=== PATIENT | female | born 1980 | race Caucasian/White ===

== ENCOUNTER 2025-03-20 01:39 | Inpatient (IN) | payer BC ==
[~2025-03-20] VITALS: Ht 172.7 cm; Wt 81.0 kg
--- NOTE | 2025-03-20 01:59 | NUR ---
PT PLACED IN ED 10 AT THIS TIME
--- NOTE | 2025-03-20 02:12 | ERN ---
ED Note History of Present Illness Stated Complaint: C/O ABD PAIN, HEADACHE, NAUSEA Chief Complaint: Abdominal Pain Time Seen by MD: :41 Time Seen by Midlevel: 01:41 Dictation: The patient is a 45-year-old female with a history of migraines, liver tr ansplant, ankylosis spondylitis who presents to the emergency department with complaints of epigastric abdominal pain associated with nausea nonbloody vomiting, frontal headache onset 3:00 p.m.. Patient reports that she isn't a process of moving and was packing when a metal box that weighs about 50 lb fell on her stomach. Patient denies any head trauma, denies any fevers, denies any constipation diarrhea. Patient does reports she usually gets headaches. Patient also reports that her urine was very dark. Allergies: Coded Allergies: acetaminophen (Unverified Allergy, Unknown, 03/20/25) hydrocodone (Unverified Allergy, Unknown, 03/20/25) sumatriptan (Unverified Allergy, Unknown, 03/20/25) Past Medical History Past Medical History: Other Additional Past Medical Hx: LIVER TRANSPLANT; Surgical History: Other Surgical History Other: LIVER TRANSPLANT (2021) RN Note Reviewed/Agreed w/PFSH: Yes Review of System Dictation Constitutional: Negative for fever,chills, and weight loss Eyes: Negative for injury, pain,redness, and discharge ENT: Negative for injury,pain or swelling Cardiovascular: Negative for chest pain, palpitations, and edema Respiratory: Negative for shortness of breath, cough, and wheezing, Abdomen/GI: Negative for diarrhea, and constipation positive for epigastric, nausea, vomiting Back: Negative for injury and pain : Negative for injury, bleeding and discharge MS/Extremity: Negative for injury and deformity Skin: Negative for rash, and discoloration Neuro: Negative for headache, weakness, numbness, tingling, and seizure Psych: Negative for suicide ideation, homicidal ideation, and hallucinations Initial Vital Sign VS Vital Signs Date Time Temp Pulse Resp B/P (MAP) Pulse Ox O2 Delivery O2 Flow Rate FiO2 03/20/25 01:41 99.0 125 20 134/88 98 Room Air 03/20/25 02:08 0 21 Physical Exam Dictation Vital Signs reviewed General Appearance: Alert, oriented x 3, no acute distress, well developed, nourished. Head and Face: non-traumatic. Eyes: PERRL, pink conjunctivas, eyelid no trauma, anterior chamber with arcus senilis. Ears: Pinnas intact and no signs of trauma or erythema ear canals clear and no discharge TM no erythema Nose: No discharge, no bleeding. Oropharynx: Mouth normal, tongue pink. pharynx clear,no erythema, tonsils no exudates, no abscesses noted, mucous membrane moist Neck: Supple, non-tender, no thyromegaly, no masses, no JVD, no bruits Breast:Deferred Chest:No tenderness, no crepitus, no paradoxical movement, no retractions Lungs:Clear, well-ventilated, symmetric, no rales, no wheezing, no rhonchi, no stridor, good breath sounds bilaterally Heart: Regular rate, regular rhythm, no murmur, no gallops Vascular: no peripheral edema, Abdomen: Soft, positive bowel sounds, nondistended, no guarding, Epigastric and left upper quadrant tenderness, no rebound, no masses no hepatomegaly, no splenomegaly, no Shah's sign, no hernias. Rectal: Deferred Genital: Deferred Neurological: Normal speech, motor function intact, sensory function intact , Musculoskeletal: Neck nontender, full range of motion, back nontender, full range of motion, Extremities: nontender, full range of motion Skin: Color pink, dry, no turgor, no rash, no lacerations, no abrasions, no contusions. Lymphatic: Deferred Results (Laboratory/Radiology) Laboratory/Radiology Laboratory Tests Test 03/20/25 02:07 03/20/25 05:16 White Blood Count 9.7 K/uL (4.8-10.8) Red Blood Count 4.63 MIL/uL (4.00-5.50) Hemoglobin 13.6 g/dL (12.0-16.0) Hematocrit 40.6 % (36-48) Mean Corpuscular Volume 87.7 fL (79-99) Mean Corpuscular Hemoglobin 29.4 pg (27.0-33.0) Mean Corpuscular Hemoglobin Concent 33.5 g/dL (32.0-36.0) Red Cell Distribution Width 13.1 % (11.0-15.5) Platelet Count 240 K/uL (130-400) Mean Platelet Volume 10.1 fL (7.5-10.5) Immature Granulocyte % (Auto) 0.3 % (0-1) Neutrophils (%) (Auto) 81.7 % (40.0-77.0) H Lymphocytes (%) (Auto) 10.9 % (21.0-51.0) L Monocytes (%) (Auto) 6.9 % (3.0-13.0) Eosinophils (%) (Auto) 0.0 % (0.0-8.0) Basophils (%) (Auto) 0.2 % (0.0-5.0) Neutrophils # (Auto) 7.9 K/uL (1.8-7.7) H Lymphocytes # (Auto) 1.1 K/uL (1.0-4.8) Monocytes # (Auto) 0.7 K/uL (0.1-1.0) Eosinophils # (Auto) 0.00 K/uL (0.00-0.70) Basophils # (Auto) 0.02 K/uL (0.00-0.20) Absolute Immature Granulocyte (auto 0.03 K/uL (0-1) Nucleated Red Blood Cells 0.0 % (0.0-0.19) Sodium Level 138 mmol/L (136-145) Potassium Level 4.0 mmol/L (3.5-5.1) Chloride Level 101 mmol/L (101-111) Carbon Dioxide Level 28 mmol/L (21-32) Blood Urea Nitrogen 29 mg/dL (7-18) H Creatinine 2.1 mg/dL (0.5-1.0) H Glomerular Filtration Rate Calc 29 mL/min (>90) Random Glucose 135 mg/dL (70-105) H Total Calcium 9.8 mg/dL (8.5-10.1) Total Bilirubin 0.8 mg/dL (0.2-1.0) Direct Bilirubin 0.3 mg/dL (0.0-0.3) Aspartate Amino Transf (AST/SGOT) 15 U/L (10-37) Alanine Aminotransferase (ALT/SGPT) 23 U/L (12-78) Alkaline Phosphatase 101 U/L (50-136) Total Creatine Kinase 54 U/L (21-232) Troponin I High Sensitivity 23 ng/L (4-50) Total Protein 7.1 g/dL (6.0-8.3) Albumin 4.1 g/dL (3.5-5.0) Lipase 40 U/L (16-77) Serum Test, Qualitative NEGATIVE (NEGATIVE) Urine Color LIGHT-YELLOW (YELLOW) Urine Appearance CLEAR (CLEAR) Urine pH 5.0 (5.0-8.0) Urine Specific [place] 1.007 (1.001-1.031) Urine Protein NEGATIVE mg/dL (NEGATIVE) Urine Glucose (UA) NEGATIVE mg/dL (NEGATIVE) Urine Ketones NEGATIVE mg/dL (NEGATIVE) Urine Occult Blood NEGATIVE (NEGATIVE) Urine Nitrate NEGATIVE (NEGATIVE) Urine Bilirubin NEGATIVE mg/dL (NEGATIVE) Urine Urobilinogen 0.2 mg/dL (0.2-1.0) Urine Leukocyte Esterase NEGATIVE Jeane/uL Labs Reviewed?: Yes EKG: (+) rhythm (Sinus tachycardia) EKG Comment: Date:03/20/2025 Time:0210 Ventricular rate:113 FL interval:143 QRS duration:94 QT/QTc:324 EKG interpretation: Sinus tachycardia Reviewed by ED Attending no STEMI CT Scan Comment: REASON: ABD PAIN epigastric ORDERING PHYSICIAN: NIRAV THAKKAR HALL CLEANER PROCEDURE: ABD PEL WO - CT ABDOMEN/PELVIS W/O CONTRAST EXAM: CT Abdomen and Pelvis without IV contrast CLINICAL HISTORY: Abdominal pain. Epigastric pain. TECHNIQUE: Thin collimated axial CT images of the abdomen and pelvis were obtained with sagittal and coronal reformatted images also submitted. CT scan is done according to ALARA (As Low As Reasonably Achievable). CONTRAST: None. COMPARISON: None. FINDINGS: The included lungs are clear. Surgical clips around the hepatic hilum without focal hepatic lesion. Status postcholecystectomy. No focal abnormality within the pancreas, spleen, or adrenals. Nonobstructive renal calculi bilaterally, the largest measuring up to 4 mm. No ureteral calculus or hydronephrosis bilaterally. Unremarkable urinary bladder. Status post hysterectomy. The right ovary is not visualized. Unremarkable left ovary. Mildly dilated proximal small bowel loops with mild mesenteric edema, measuring up to 2.8 cm in diameter, no obvious zone of transition is evident. Unremarkable appendix. Grossly unremarkable abdominal vessels. No pathological lymphadenopathy in the abdomen or pelvis. No ascites or pneumoperitoneum. No acute bony abnormality is evident. Degenerative osseous changes. IMPRESSIONS: Mildly dilated proximal small bowel loops with mild mesenteric edema, measuring up to 2.8 cm in diameter, no obvious zone of transition is evident. The differentials could be mild acute enteritis or ileus. The possibility of early changes of bowel obstruction cannot be excluded. If there is a clinical concern of bowel obstruction, recommend a barium follow-through study for an optimal evaluation. Nonobstructive renal calculi bilaterally. Status postcholecystectomy. Surgical clips around the hepatic hilum and IVC. /[place] DICTATED BY: NICKIE HAGER Jr., MD DATE: 03/20/25621 ELECTRONICALLY SIGNED BY: NICKIE HAGER Jr., MD DATE: 03/20/25621 ED Course ED Course Orders Procedure Category Date Status Time Cbc With Differential LAB 03/20/25 Complete 01:59 Urinalysis Profile LAB 03/20/25 Complete 01:59 12 Lead Ekg Tracing- EKG 03/20/25 Complete Technical 01:59 0.9%Nacl 1000ml (Ns PHA 03/20/25 Complete 1000ml) 02:00 Ondansetron 4mg Inj PHA 03/20/25 Complete (Zofran 4mg Inj) 02:00 Creatine Kinase, Total LAB 03/20/25 Complete 01:59 Lipase LAB 03/20/25 Complete 01:59 Basic Metabolic Panel LAB 03/20/25 Complete 01:59 Hepatic Function Panel LAB 03/20/25 Complete 01:59 Morphine 4mg Syg PHA 03/20/25 Complete (Morphine 4mg Syg) 02:00 Chest 1vw RAD 03/20/25 Resulted 02:07 Testing, LAB 03/20/25 Complete Serum Hcg 02:13 Troponin I High LAB 03/20/25 Complete Sensitivity 02:40 Ct Abdomen/Pelvis W/O CT 03/20/25 Resulted Contrast 02:40 Hydromorphone 1 Mg PHA 03/20/25 Complete Inj (Dilaudid 1mg Inj 06:00 Edm Admit Bridge Order ADM 03/20/25 Transmitted 06:32 Initiate CHRISTIAN 03/20/25 In Process Hyperglycemia Protoco 06:30 Insulin Regular, PHA 03/20/25 Logged Human 3ml (Humulin R 07:30 Initiate Hypoglycemia CHRISTIAN 03/20/25 In Process Protocol 06:30 Dextrose 50%-Water PHA 03/20/25 Logged (D50w) 06:30 Glucagon 1mg Kit PHA 03/20/25 Logged (Glucagon 1mg Kit) 06:30 Initiate Hypokalemia CPOE 03/20/25 Transmitted Po Half 06:30 Potassium Chloride PHA 03/20/25 Logged 10meq/100ml ([place] 06:30 Potassium Chl 10% PHA 03/20/25 Logged Elixir 20meq (Kcl 10% 06:30 Potassium Chloride PHA 03/20/25 Logged 20meq Er (K-Dur/Klor- 06:30 Notify Physician If CPOE 03/20/25 Transmitted There Is 06:30 Notify Md On The Next CPOE 03/20/25 Transmitted 06:30 Notify Md On The CPOE 03/20/25 Transmitted Next(Cont.) 06:30 Magnesium 2gm Premix PHA 03/20/25 Logged 50ml (Magnesium 2gm 06:30 Ammonia LAB 03/21/25 Verified 04:00 B-Type Natriuretic LAB 03/21/25 Verified Peptide 04:00 Cbc With Differential LAB 03/21/25 Verified 04:00 Comprehensive LAB 03/21/25 Verified Metabolic Panel 04:00 Creatine Kinase, Total LAB 03/21/25 Verified 04:00 Hemoglobin A1c LAB 03/21/25 Verified 04:00 Hepatic Function Panel LAB 03/21/25 Verified 04:00 Influenza Type A & B, LAB 03/20/25 Logged Rapid 06:30 Lactic Acid LAB 03/21/25 Verified 04:00 Lipase LAB 03/21/25 Verified 04:00 Magnesium LAB 03/21/25 Verified 02:00 Procalcitonin LAB 03/21/25 Verified 04:00 Vital Signs(Adult CPOE 03/20/25 Transmitted Hospitalist) 06:30 Daily Weights CPOE 03/20/25 Transmitted 06:30 I&O Q Shift CPOE 03/20/25 Transmitted 06:30 Fever: Blood Cx X 2 CPOE 03/20/25 Transmitted 06:30 Diphenhydramine Hcl PHA 03/20/25 Logged (Benadryl Inj) 06:30 Acetaminophen 325 Tab PHA 03/20/25 Logged (Tylenol 325mg Tab 06:30 Acetaminophen 325 Tab PHA 03/20/25 Logged (Tylenol 325mg Tab 06:30 Ondansetron 4mg Inj PHA 03/20/25 Logged (Zofran 4mg Inj) 06:30 Zolpidem Tartrate 5 PHA 03/20/25 Logged Mg Tab (Ambien) 06:30 Mag/Alum/Simeth 30ml PHA 03/20/25 Logged (Maalox Plus 30ml) 06:30 Lactulose 20 Gm/30 Ml PHA 03/20/25 Logged Udcup (Constulose 06:30 Nitroglycerin 0.4mg PHA 03/20/25 Logged Sl Tab (Nitrostat) 06:30 Guaifenesin-Dm PHA 03/20/25 Logged 200/20mg 10ml 06:30 Famotidine 20mg Vial PHA 03/20/25 Logged (Pepcid 20mg Vial) 06:30 Nurse To Enter Home CPOE 03/20/25 Transmitted Medication 06:30 Admit Orders ADM 03/20/25 Transmitted 06:30 Telemetry Monitoring CPOE 03/20/25 Transmitted 06:30 Activity: Br W/Brp CPOE 03/20/25 Transmitted With Assist 06:30 Nothing By Mouth DIET 03/20/25 Transmitted Breakfast Heparin 5,000 Unit PHA 03/20/25 Logged Vial (Heparin 5,000 U 09:00 Apply Scds CPOE 03/20/25 Transmitted 06:30 Acetaminophen 325 Tab PHA 03/20/25 Logged (Tylenol 325mg Tab 06:30 Ketorolac PHA 03/20/25 Logged Tromethamine 15mg/Ml 06:30 Tramadol PHA 03/20/25 Logged Hcl/Acetaminophen 06:30 Hydromorphone 0.5mg PHA 03/20/25 Logged Syg (Dilaudid 0.5mg 06:30 Culture Urine JAMIE 03/20/25 Logged 06:30 Ct Abdomen/Pelvis W/O CT 03/21/25 Verified Contrast 06:30 Case Management CM 03/20/25 Transmitted Evaluation 06:30 Pt Eval Request PT 03/20/25 Transmitted 06:30 0.9%Nacl 1000ml (Ns PHA 03/20/25 Logged 1000ml) 06:30 Ceftriaxone 1g Vial PHA 03/20/25 Logged (Rocephine 1g Inj) 06:30 Hydralazine 20mg Inj PHA 03/20/25 Logged (Apresoline 20mg In 06:30 Famotidine 20mg Vial PHA 03/20/25 Logged (Pepcid 20mg Vial) 09:00 General Surgery CONPHYSVC 03/20/25 Transmitted Consult 06:30 Current Medications Medications (Trade) Dose Ordered Sig/Dariana Route PRN Reason Start Time Stop Time Status Last Admin Dose Admin Acetaminophen (TYLenol 325MG TAB) 650 mg Q4H PRN PO MILD PAIN (1-3) 03/20/25 06:30 04/19/25 06:29 UNV Acetaminophen (TYLenol 325MG TAB) 650 mg Q6H PRN PO MILD PAIN (1-3) 03/20/25 06:30 04/19/25 06:29 UNV Acetaminophen (TYLenol 325MG TAB) 650 mg Q6H PRN PO TEMPERATURE GREATER THAN 101.5 03/20/25 06:30 04/19/25 06:29 UNV Al Hydroxide/Mg Hydroxide (MAALox PLUS 30ML) 30 ml Q6H PRN PO INDIGESTION 03/20/25 06:30 04/19/25 06:29 UNV Ceftriaxone Sodium 2 gm/ Sodium Chloride 100 ml @ 200 mls/hr Q24H IV 03/20/25 06:30 03/30/25 06:29 UNV Dextrose (D50w) 50 ml AD PRN IV HYPOGLYCEMIA PROTOCOL 03/20/25 06:30 04/19/25 06:29 UNV Diphenhydramine HCl (BENAdryl INJ) 25 mg Q6H PRN IV SEVERE ITCHING/RASH 03/20/25 06:30 04/19/25 06:29 UNV Famotidine (Pepcid 20mg Vial) 20 mg BID IV 03/20/25 09:00 04/19/25 08:59 UNV Famotidine (Pepcid 20mg Vial) 20 mg BID PRN IV NAUSEA/VOMITING 03/20/25 06:30 04/19/25 06:29 UNV Glucagon (Glucagon 1mg Kit) 1 mg AD PRN IM HYPOGLYCEMIA PROTOCOL 03/20/25 06:30 04/19/25 06:29 UNV Guaifenesin/ Dextromethorphan (RobiTUSSin DM 200/20MG 10ML) 10 ml Q4H PRN PO COUGH 03/20/25 06:30 04/19/25 06:29 UNV Heparin Sodium (Porcine) (HEParin 5,000 UNIT VIAL) 5,000 unit BID SQ 03/20/25 09:00 04/19/25 08:59 UNV Hydralazine HCl (APRESOLine 20MG INJ) 10 mg Q6H PRN IV For:SBP above 160;DBP above 90 03/20/25 06:30 04/19/25 06:29 UNV Hydromorphone HCl (DiLAUDid 0.5MG INJ) 0.5 mg Q4H PRN IVP SEVERE PAIN (7-10) 03/20/25 06:30 03/25/25 06:29 UNV Hydromorphone HCl (DiLAUDid 1MG INJ) 1 mg ONCE ONCE IVP 03/20/25 06:00 03/20/25 06:01 DC 03/20/25 06:14 Insulin Human Regular (humuLIN R 100 UNIT/ML 3ML) INSULIN SLIDING SCAL... ACHS SQ 03/20/25 07:30 04/19/25 07:29 UNV Ketorolac Tromethamine (toRADol) 15 mg Q8H PRN IV MODERATE PAIN (4-6) 03/20/25 06:30 03/25/25 06:29 UNV Lactulose (Constulose 20gm/ 30ml Udcup) 20 gm BID PRN PO CONSTIPATION 03/20/25 06:30 04/19/25 06:29 UNV Magnesium Sulfate 50 ml @ 0 mls/hr PROTOCOL PRN IV other 03/20/25 06:30 04/19/25 06:29 UNV Morphine Sulfate (morPHINE 4MG SYG) 4 mg ONCE ONCE IVP 03/20/25 02:00 03/20/25 02:07 DC 03/20/25 02:34 Nitroglycerin (Nitrostat) 0.4 mg PROTOCOL PRN SL CHEST PAIN 03/20/25 06:30 04/19/25 06:29 UNV Ondansetron HCl (zoFRAN 4MG INJ) 4 mg ONCE ONCE IVP 03/20/25 02:00 03/20/25 02:05 DC 03/20/25 02:33 Ondansetron HCl (zoFRAN 4MG INJ) 4 mg Q6H PRN IV NAUSEA/VOMITING 03/20/25 06:30 04/19/25 06:29 UNV Potassium Chloride 100 ml @ 100 mls/hr AD PRN IV POTASSIUM PROTOCOL 03/20/25 06:30 04/19/25 06:29 UNV Potassium Chloride (K-Dur/Klor-Con 20meq) 10 meq AD PRN PO POTASSIUM PROTOCOL 03/20/25 06:30 04/19/25 06:29 UNV Potassium Chloride (KCl 10% Elixir 20meq/15ml) 10 meq AD PRN PO POTASSIUM PROTOCOL 03/20/25 06:30 04/19/25 06:29 UNV Sodium Chloride 1,000 ml @ 0 mls/hr ONCE ONCE IV 03/20/25 02:00 03/20/25 02:05 DC 03/20/25 02:35 Sodium Chloride 1,000 ml @ 100 mls/hr Q10H IV 03/20/25 06:30 04/19/25 06:29 UNV Tramadol/ Acetaminophen (UltraCET) 1 tab Q6H PRN PO MODERATE PAIN (4-6) 03/20/25 06:30 03/25/25 06:29 UNV Zolpidem Tartrate (AmbIEN) 5 mg HS PRN PO INSOMNIA 03/20/25 06:30 04/19/25 06:29 UNV Vital Signs Date Time Temp Pulse Resp B/P (MAP) Pulse Ox O2 Delivery O2 Flow Rate FiO2 03/20/25 02:08 99.0 114 15 126/88 96 Room Air* 0 21 03/20/25 01:41 99.0 125 20 134/88 98 Room Air We will perform diagnostic labs, advanced imaging and administer medications according to the patient's complaint. Once the results are available, will review and personally interpreted the labs to rule out any acute life- threatening emergency the trach require immediate intervention and treatment. I will then re-evaluate the patient after treatment and diagnostic exams have return to determine whether the patient requires any further testing, can safely be discharged home or need further admission to hospital for additional treatment and evaluation. Patient is signed out to me at 3:00 a.m. by HALL CLEANER. I independently reviewed the history and physical and examined her. CT scan of the abdomen and pelvis was pending at the time of sign-out. 5:40 a.m. I updated the patient on the CT scan results which showed a mesenteric edema and possibility of small-bowel obstruction versus an infectious process. And I recommended admission to the hospital for further management and she was agreeable She indicated to me that she has also chronic pain patient and takes Dilaudid 4 mg p.o. q.4 hours and [place] buccal film. 6:20 a.m. [facility] for [facility] and further management Medical Decision Making MDM MDM: Differential diagnosis: Rationale: Tests considered and ordered secondary to shared decision making include: labs, ECG and radiology Previous outside records reviewed: Old ER visits. Risk of complication and/or morbidity or mortality of patient management: None Medications-Per medication reconciliation Need for hospitalization: Patient does meet criteria for hospitalization. Need for emergency major/minor surgery: No There are no social concerns with this patient. Prescription drug management Prescriptions will include symptomatic care Patient's prior external medical records from other ER visits were reviewed by me as indicated. Prior testing and results from previous visits were reviewed. Prior tests were taken into account with medical decision making and resource utilization, independent historian/historians were used to obtain complete medical history. I independently interpreted the test that were performed, results were reviewed by me and considered findings on radiology if ordered. Medical management and examination interpretation discussions were had by me with other qualified healthcare professionals as indicated for the patient's care. Problem List Problem List: (1) Small bowel obstruction (2) Abdominal pain (3) Mesenteric angina (4) Liver transplant disorder DX & DISP Disposition: Inpatient Decision to Admit Time: 06:34 Departure Impression: Primary Impression: Abdominal pain Additional Impressions: Mesenteric angina, Liver transplant disorder, Small bowel obstruction Condition: Stable Additional Instructions: Patient was informed of all the diagnostic labs and procedures conducted in the emergency room today and demonstrated understanding of the results. I jonathan persaud reviewed and interpreted all the diagnostic exams performed in the ER today. The patient will be admitted to the hospital for further treatment and evaluation. Disposition-admit to facility Condition-stable/guarded Course-uncertain at this time Pain status-decreased Assessment-exam unchanged Admission Certification- I certify that the patients status is appropriate and is based on my best clinical judgment and the patient's condition as documented in the medical records Referrals: NONE (PCP) NIRAV THAKKAR Mar 20, 2025 02:12 FOREIGN ABURTO MD Mar 20, 2025 05:32
[2025-03-20 02:17] LABS: IMMATURE GRANULOCYTE ABSOLUTE 0.03 K/uL (0-1); NUCLEATED RED BLOOD CELLS 0.0 % (0.0-0.19); PLATELET COUNT (AUTO) 240 K/uL (130-400); RED BLOOD CELL COUNT(AUTO) 4.63 MIL/uL (4.00-5.50); RED CELL DISTRIBUTION WIDTH 13.1 % (11.0-15.5); WHITE BLOOD COUNT (AUTO) 9.7 K/uL (4.8-10.8)
[2025-03-20 02:26] LABS: CREATININE 2.1 mg/dL (0.5-1.0); GLOMERULAR FILTR. RATE CALC 29.0 mL/min (>90); GLUCOSE,RANDOM 135.0 mg/dL (70-105); SODIUM SERUM 138.0 mmol/L (136-145); UREA NITROGEN, BLOOD 29.0 mg/dL (7-18)
[2025-03-20 02:30] LABS: ASPARTATE AMINOTRANSFERASE 15.0 U/L (10-37); CREATINE KINASE, TOTAL 54.0 U/L (21-232); TOTAL PROTEIN, SERUM 7.1 g/dL (6.0-8.3)
[2025-03-20] MEDS: 0.9%NACL 1000ML 1,000 ML IV ONE (02:35)
--- NOTE | 2025-03-20 02:45 | NUR ---
PT PROVIDED WITH UA CUP IN ATTEMPT TO COLLECT URINE SAMPLE.
--- NOTE | 2025-03-20 03:05 | HMCIMG ---
EXAM: CR Chest, 1 view CLINICAL HISTORY: Epigastric pain after trauma. COMPARISON: None provided. FINDINGS: The lungs show no infiltrates or other acute findings. No pleural effusion or pneumothorax. The cardiomediastinal silhouette is within normal limits. No acute osseous abnormality. No free air under the diaphragm. IMPRESSION: No acute cardiopulmonary process is evident. No free air under the diaphragm. /[place]
--- NOTE | 2025-03-20 04:32 | NUR ---
PT VOICED CONCERNS ABOUT CHEST "HOTNESS" AND SOB AT THIS TIME. PT'S O2 SAT IS 100% WITH EVEN AND UNLABORED BREATHING. PT SHOWS NO SIGNS OF DISTRESS. ED MD MARTÍNEZU MADE AWARE OF PT'S CONCERNS. NO ORDERS.
--- NOTE | 2025-03-20 05:23 | HMCIMG ---
EXAM: CT Abdomen and Pelvis without IV contrast CLINICAL HISTORY: Abdominal pain. Epigastric pain. TECHNIQUE: Thin collimated axial CT images of the abdomen and pelvis were obtained with sagittal and coronal reformatted images also submitted. CT scan is done according to ALARA (As Low As Reasonably Achievable). CONTRAST: None. COMPARISON: None. FINDINGS: The included lungs are clear. Surgical clips around the hepatic hilum without focal hepatic lesion. Status postcholecystectomy. No focal abnormality within the pancreas, spleen, or adrenals. Nonobstructive renal calculi bilaterally, the largest measuring up to 4 mm. No ureteral calculus or hydronephrosis bilaterally. Unremarkable urinary bladder. Status post hysterectomy. The right ovary is not visualized. Unremarkable left ovary. Mildly dilated proximal small bowel loops with mild mesenteric edema, measuring up to 2.8 cm in diameter, no obvious zone of transition is evident. Unremarkable appendix. Grossly unremarkable abdominal vessels. No pathological lymphadenopathy in the abdomen or pelvis. No ascites or pneumoperitoneum. No acute bony abnormality is evident. Degenerative osseous changes. IMPRESSIONS: Mildly dilated proximal small bowel loops with mild mesenteric edema, measuring up to 2.8 cm in diameter, no obvious zone of transition is evident. The differentials could be mild acute enteritis or ileus. The possibility of early changes of bowel obstruction cannot be excluded. If there is a clinical concern of bowel obstruction, recommend a barium follow-through study for an optimal evaluation. Nonobstructive renal calculi bilaterally. Status postcholecystectomy. Surgical clips around the hepatic hilum and IVC. /[place]
[2025-03-20 05:33] LABS: APPEARANCE,URINE CLEAR (CLEAR); GLUCOSE, URINE (UA) NEGATIVE (NEGATIVE); LEUKOCYTE ESTERASE ,URINE NEGATIVE Leu/uL (NEGATIVE); NITRATE,URINE NEGATIVE (NEGATIVE); OCCULT BLOOD,URINE NEGATIVE (NEGATIVE)
[2025-03-20 05:38] LABS: ADD UA MICROSCOPIC NO
[2025-03-20] MEDS ORDERED: DEXTROSE 50%-WATER 50 ML DISP.SYRIN IV PRN (06:30)
[2025-03-20] MEDS ORDERED: LACTULOSE 20 GM/30 ML UDCUP PO PRN (06:30)
[2025-03-20] MEDS ORDERED: NITROGLYCERIN 0.4 MG SL TAB SL PRN (06:30)
[2025-03-20] MEDS ORDERED: MAG/ALUM/SIMETH 30 ML UDCUP PO PRN (06:30)
[2025-03-20] MEDS ORDERED: PoTASSium chl 10% ELIXIR 20MEQ 20 MEQ/15 ML UDCUP PO PRN (06:30)
[2025-03-20] MEDS ORDERED: GLUCAGON 1MG KIT 1 MG ML IM PRN (06:30)
[2025-03-20] MEDS ORDERED: PoTASSium chloRIDE 20MEQ ER 20 MEQ ERTAB PO PRN (06:30)
[2025-03-20] MEDS ORDERED: MAGNESIUM 2GM PREMIX 50ML 50 ML IV PRN (06:30)
[2025-03-20] MEDS ORDERED: FAMOTIDINE 20MG VIAL IV PRN (06:30)
[2025-03-20] MEDS ORDERED: guaiFENesin-DM 200/20MG 10ML PO PRN (06:30)
--- NOTE | 2025-03-20 06:31 | EKG ---
[facility] Test Date: 2025-03-20 Test Time: 02:10:30 Pat Name: RADHA LARA Department: EDH Room: ED Gender: F Nutrition Counselor: [id number] : 1980 Requested By: NIRAV THAKKAR Order Number: [id number] Reading MD: Alexsandra Wiggins Measurements Intervals [place] Rate: 113 P: 50 NJ: 143 QRS: 42 QRSD: 94 T: -3 QT: 324 QTc: 444 Interpretive Statements Sinus tachycardia Probable left atrial enlargement No previous ECG available for comparison Electronically Signed On 03-20-2025 07:50:55 CDT by Alexsandra Wiggins Please click the below link to view image of tracing.
--- NOTE | 2025-03-20 07:00 | NUR ---
REPORT GIVEN TO GIOVANNI VALVERDE AT THIS TIME
[2025-03-20] MEDS: 0.9%NACL 1000ML 1,000 ML IV SCH (07:05)
--- NOTE | 2025-03-20 09:03 | NUR ---
DR ROUSSEAU PAGED FOR GEN SX CONSULT.
--- NOTE | 2025-03-20 09:44 | NUR ---
DCP: HOME Pt states that she currently lives alone. She states that she is normally lives in [place], [place] however was in the [place] to take care of an aunt however she has since passed. Pt states that she was in the process of moving back to [place]. Pt does use a walker and shower chair at home. Pt does not currently have home health or provider services. Pt states that she can complete ADLs independently. Pt states that all her PCP and doctors are in the [place] area. At [place] pt will be moving back to [place] and mom will be assisting with transportation. Addendum: 03/20/25 at 0946 by DEE DEE CASTILLO SS Amended: Links added.
[2025-03-20] MEDS: FAMOTIDINE 20MG VIAL IV SCH (09:52)
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
--- NOTE | 2025-03-20 12:34 | NUR ---
REPORT GIVEN TO
[2025-03-20 12:45] VITALS: BP 125/82; PULSE 102; RESP 16; TEMP 98.7; O2SAT 97
[2025-03-20 16:00] VITALS: BP 125/74; PULSE 89; RESP 17; TEMP 98.4
[2025-03-20] MEDS ORDERED: MYCO500T5 PO (16:25)
[2025-03-20] MEDS ORDERED: TIRZ15PE SQ (16:25)
[2025-03-20] MEDS ORDERED: GABA-1405 PO (16:25)
[2025-03-20] MEDS ORDERED: CYCL100C8 PO (16:25)
[2025-03-20] MEDS ORDERED: SECU150P2 SQ (16:25)
[2025-03-20] MEDS ORDERED: METH-811 PO (16:25)
[2025-03-20] MEDS: MAGNESIUM CITRATE 296 ML SOLUTION PO ONE (16:58)
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
[2025-03-20 19:22] VITALS: O2SAT 99
[2025-03-20 20:20] VITALS: BP 122/61; PULSE 91; RESP 19; TEMP 97.8
[2025-03-21] VITALS (7 sets, daily range): BP systolic 120–144; BP diastolic 74–85; PULSE 82–92; RESP 17–21; TEMP 97.8–98.1; O2SAT 96
[2025-03-21 04:26] LABS: IMMATURE GRANULOCYTE ABSOLUTE 0.01 K/uL (0-1); NUCLEATED RED BLOOD CELLS 0.0 % (0.0-0.19); PLATELET COUNT (AUTO) 156 K/uL (130-400); RED BLOOD CELL COUNT(AUTO) 3.95 MIL/uL (4.00-5.50); RED CELL DISTRIBUTION WIDTH 13.2 % (11.0-15.5); WHITE BLOOD COUNT (AUTO) 5.2 K/uL (4.8-10.8)
[2025-03-21 04:44] LABS: ASPARTATE AMINOTRANSFERASE 13.0 U/L (10-37); CREATINE KINASE, TOTAL 25.0 U/L (21-232); CREATININE 1.4 mg/dL (0.5-1.0); GLOMERULAR FILTR. RATE CALC 47.0 mL/min (>90); GLUCOSE,RANDOM 82.0 mg/dL (70-105); SODIUM SERUM 141.0 mmol/L (136-145); TOTAL PROTEIN, SERUM 5.5 g/dL (6.0-8.3); UREA NITROGEN, BLOOD 20.0 mg/dL (7-18)
[2025-03-21] MEDS: MYCOPHENOLATE MOFETIL 250 MG CAPSULE PO SCH (08:14)
[2025-03-21] MEDS: CYCLOSPORINE PO SCH (08:18)
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
[2025-03-21] MEDS: MAGNESIUM 2GM PREMIX 50ML 50 ML IV SCH (21:35)
[2025-03-22] VITALS (8 sets, daily range): BP systolic 128–159; BP diastolic 70–96; PULSE 81–94; RESP 16–20; TEMP 98.2–98.5; O2SAT 100
[2025-03-22 05:06] LABS: IMMATURE GRANULOCYTE ABSOLUTE 0.00 K/uL (0-1); NUCLEATED RED BLOOD CELLS 0.0 % (0.0-0.19); PLATELET COUNT (AUTO) 161 K/uL (130-400); RED BLOOD CELL COUNT(AUTO) 3.95 MIL/uL (4.00-5.50); RED CELL DISTRIBUTION WIDTH 13.3 % (11.0-15.5); WHITE BLOOD COUNT (AUTO) 3.7 K/uL (4.8-10.8)
[2025-03-22 05:19] LABS: ASPARTATE AMINOTRANSFERASE 13.0 U/L (10-37); CREATININE 1.0 mg/dL (0.5-1.0); GLOMERULAR FILTR. RATE CALC 70.0 mL/min (>90); GLUCOSE,RANDOM 98.0 mg/dL (70-105); SODIUM SERUM 143.0 mmol/L (136-145); TOTAL PROTEIN, SERUM 5.4 g/dL (6.0-8.3); UREA NITROGEN, BLOOD 16.0 mg/dL (7-18)
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
[2025-03-22] MEDS: LOPERAMIDE 1 MG/7.5 ML UDCUP PO SCH (14:32)
[2025-03-22 15:11] LABS: COVID19 (SARS ANTIGEN RAPID) PRESUMPTIVE NEGATIVE (NEGATIVE); INFLUENZA TYPE A Negative For Type A (NEGATIVE); INFLUENZA TYPE B Negative For Type B (NEGATIVE)
[2025-03-22] MEDS: GABAPENTIN 300 MG CAPSULE PO SCH (20:25)
[2025-03-22] MEDS: guaiFENesin-DM 200/20MG 10ML PO PRN (20:49)
--- NOTE | 2025-03-22 20:54 | HMCIMG ---
EXAM: CT Abdomen and Pelvis without IV contrast CLINICAL HISTORY: Small bowel obstruction. TECHNIQUE: Thin collimated axial CT images of the abdomen and pelvis were obtained with sagittal and coronal reformatted images also submitted. CT scan is done according to ALARA (As Low As Reasonably Achievable). CONTRAST: None. COMPARISON: CT abdomen and pelvis dated 03/21/2025. FINDINGS: The included lungs are clear. Surgical clips around the hepatic hilum without focal hepatic lesion. Status postcholecystectomy. No focal abnormality within the pancreas, spleen, or adrenals. Nonobstructive renal calculi bilaterally, the largest measuring up to 4 mm. No ureteral calculus or hydronephrosis bilaterally. The urinary bladder is suboptimally distended and grossly unremarkable. Status post hysterectomy. The right ovary is not visualized. Unremarkable left ovary. Significant interval improvement in the previously noted small bowel dilatation and mesenteric edema, with a maximum diameter of 2.4 cm at present. A component of mild constipation is present in the colon. Unremarkable appendix. Grossly unremarkable abdominal vessels. No pathological lymphadenopathy in the abdomen or pelvis. No ascites or pneumoperitoneum. No acute bony abnormality is evident. Degenerative osseous changes. IMPRESSIONS: Significant interval improvement in the previously noted small bowel dilatation and mesenteric edema, with a maximum diameter of 2.4 cm at present. The remaining findings are grossly unchanged. No adverse interval changes. /[place]
[2025-03-23 03:45] VITALS: BP 132/74; PULSE 86; RESP 18; TEMP 98.6
--- NOTE | 2025-03-23 04:20 | HMCIMG ---
EXAM: CR Chest, 1 view CLINICAL HISTORY: Congestion. COMPARISON: Chest radiograph dated 03/20/2025. FINDINGS: The lungs show no infiltrates or other acute findings. No pleural effusion or pneumothorax. The cardiomediastinal silhouette is within normal limits. No acute osseous abnormality. Surgical clips in the left axillary region. IMPRESSION: No acute cardiopulmonary process is evident. No interval changes. /[place]
[2025-03-23 05:22] LABS: IMMATURE GRANULOCYTE ABSOLUTE 0.01 K/uL (0-1); NUCLEATED RED BLOOD CELLS 0.0 % (0.0-0.19); PLATELET COUNT (AUTO) 150 K/uL (130-400); RED BLOOD CELL COUNT(AUTO) 3.79 MIL/uL (4.00-5.50); RED CELL DISTRIBUTION WIDTH 13.3 % (11.0-15.5); WHITE BLOOD COUNT (AUTO) 3.8 K/uL (4.8-10.8)
[2025-03-23 05:41] LABS: ASPARTATE AMINOTRANSFERASE 11.0 U/L (10-37); CREATININE 1.0 mg/dL (0.5-1.0); GLOMERULAR FILTR. RATE CALC 70.0 mL/min (>90); GLUCOSE,RANDOM 89.0 mg/dL (70-105); SODIUM SERUM 139.0 mmol/L (136-145); TOTAL PROTEIN, SERUM 5.1 g/dL (6.0-8.3); UREA NITROGEN, BLOOD 10.0 mg/dL (7-18)
[2025-03-23] MEDS ORDERED: PoTASSium chloRIDE 10MEQ SR 10 MEQ/TAB TAB.SR.24H PO PRN (06:30)
[2025-03-23 08:00] VITALS: O2SAT 99
[2025-03-23 08:07] VITALS: BP 151/94; PULSE 89; RESP 20; TEMP 98.3
[2025-03-23 11:24] VITALS: BP 151/92; PULSE 92; RESP 20; TEMP 98.3
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
[2025-03-23] MEDS ORDERED: MAGNESIUM 2GM PREMIX 50ML 50 ML IV SCH (13:30)
[2025-03-23 13:46] LABS: % IRON SATURATION 26.1 % (22-44); IRON, SERUM 46.0 mcg/dL (50-170)
[2025-03-23] MEDS: BENZOCAINE/MENTH/CETYLPYRD CL 1 EACH LOZENGE MM PRN (14:38)
[2025-03-23] MEDS: LIDOCAINE 4% ADH..PATCH TP SCH (14:38)
--- NOTE | 2025-03-23 15:42 | NUR ---
Nutrition consult per Pt request Reviewed labs, notes, and medications. Pt with severe abd. pain, pending surgeon jammieal, on FLD, IV fluids, sedated, Ca 8.4(L), Mg 1.70 (L), A1C WNL per chart review. 25-50%PO intake, liquid loose BM 03/22/25, wt via standing scale, no edema, well nourished, no wounds, 1420 ml balance 03/22/25 per nursing. Pt reported she would like a supplement for diarrhea, RD delivered banatrol 4 packets, provided instructions on supplements, added to diet order and notified accounts clerk. Pt agreeable to ensure HP QD w/ am tray. Recommendations: -Provide ensure HP QD w/ am tray, banatrol 3 packets w/ am tray + FLD + neutropenic diet -Monitor PO intake -Encourage PO intake as able -Monitor BM -If no BM >3 days consider stool softener -Consider probiotics QD per diarrhea -Monitor electrolytes -Replenish electrolytes per protocol -Monitor wts -Reweigh as able -Order Vit D, vit b-12 labs to rule out deficiencies -Provide MVI QD -Advance diet when medically feasible to diet -Recommend Pt to follow up with PCP -Monitor goals of care RD to follow + available for consult per protocol Addendum: 03/23/25 at [address] Amended: Links added.
[2025-03-23 16:47] VITALS: BP 163/95; PULSE 99; RESP 20; TEMP 98.6
[2025-03-23 20:00] VITALS: BP 146/92; PULSE 91; RESP 20; TEMP 98.9
[2025-03-24] VITALS (7 sets, daily range): BP systolic 130–164; BP diastolic 56–102; PULSE 74–101; RESP 18–20; TEMP 98.4–98.6
[2025-03-24 05:11] LABS: NUCLEATED RED BLOOD CELLS 0.0 % (0.0-0.19); PLATELET COUNT (AUTO) 160.0 K/uL (130-400); RED BLOOD CELL COUNT(AUTO) 4.09 MIL/uL (4.00-5.50); RED CELL DISTRIBUTION WIDTH 13.3 % (11.0-15.5); WHITE BLOOD COUNT (AUTO) 4.8 K/uL (4.8-10.8)
[2025-03-24 05:24] LABS: ASPARTATE AMINOTRANSFERASE 40.0 U/L (10-37); CREATININE 0.8 mg/dL (0.5-1.0); GLOMERULAR FILTR. RATE CALC 92.0 mL/min (>90); GLUCOSE,RANDOM 101.0 mg/dL (70-105); SODIUM SERUM 139.0 mmol/L (136-145); TOTAL PROTEIN, SERUM 5.7 g/dL (6.0-8.3); UREA NITROGEN, BLOOD 8.0 mg/dL (7-18)
[2025-03-24] MEDS ORDERED: LIDOCAINE 4% ADH..PATCH TP SCH (09:00)
[2025-03-24] MEDS ORDERED: BENZOCAINE/MENTH/CETYLPYRD CL 1 EACH LOZENGE MM PRN (09:30)
[2025-03-24] MEDS ORDERED: MAGNESIUM 2GM PREMIX 50ML 50 ML IV SCH (09:30)
[2025-03-24] MEDS: BENZOCAINE/MENTH/CETYLPYRD CL 1 EACH LOZENGE MM PRN (10:16)
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
[2025-03-24] MEDS: amLODIPine 5 MG TAB PO SCH (14:00)
[2025-03-25] VITALS: BP 115/58; PULSE 87; RESP 20; TEMP 98.6
[2025-03-25 04:00] VITALS: BP 109/43; PULSE 50; RESP 18; TEMP 98.4
[2025-03-25 05:28] LABS: NUCLEATED RED BLOOD CELLS 0.0 % (0.0-0.19); PLATELET COUNT (AUTO) 150.0 K/uL (130-400); RED BLOOD CELL COUNT(AUTO) 4.13 MIL/uL (4.00-5.50); RED CELL DISTRIBUTION WIDTH 13.4 % (11.0-15.5); WHITE BLOOD COUNT (AUTO) 4.1 K/uL (4.8-10.8)
[2025-03-25 05:44] LABS: ASPARTATE AMINOTRANSFERASE 15.0 U/L (10-37); CREATININE 0.7 mg/dL (0.5-1.0); GLOMERULAR FILTR. RATE CALC 108.0 mL/min (>90); GLUCOSE,RANDOM 101.0 mg/dL (70-105); SODIUM SERUM 141.0 mmol/L (136-145); TOTAL PROTEIN, SERUM 5.4 g/dL (6.0-8.3); UREA NITROGEN, BLOOD 7.0 mg/dL (7-18)
[2025-03-25 08:00] VITALS: BP 137/87; PULSE 81; RESP 18; TEMP 98.4
--- NOTE | 2025-03-25 08:13 | HMCIMG ---
EXAMINATION: ULTRASOUND OF THE ABDOMEN (LIMITED) WITH COLOR DOPPLER. CLINICAL HISTORY: Liver transplant. COMPARISON: CT abdomen and pelvis without contrast dated 03/21/2025. TECHNIQUE: Real-time grayscale ultrasound images of the abdomen. In addition, color Doppler is medically necessary to perform in order to evaluate vascularity and blood flow. FINDINGS: Liver: Normal in caliber, the right hepatic lobe measures 13.0 cm in the craniocaudal dimension. There is normal echogenicity of the hepatic parenchyma. There is no focal hepatic abnormality or intrahepatic biliary ductal dilatation. There is normal spectral Doppler of the main portal vein. Gallbladder: Post cholecystectomy status. Common bile duct is normal in caliber, measuring 0.5 cm. Pancreas: Normal in caliber and echotexture. No calcification or dilated pancreatic duct. The right kidney is normal in caliber, the right kidney measures 10.9 x 4.8 x 6.4 cm in craniocaudal, AP, and transverse dimensions respectively. There is normal renal cortical thickness, and cortical echogenicity. There is no hydronephrosis. There is a calculus that measures 0.7 x 0.4 x 0.6 cm at the right renal mid pole. IMPRESSION: Post cholecystectomy status. Right renal calculus. No obstruction. /Jessie
[2025-03-25] MEDS ORDERED: LIDO1ADH71 TP (09:04)
[2025-03-25] MEDS ORDERED: BENZ1LOZ81 PO (09:04)
[2025-03-25] MEDS ORDERED: AMOX1TAB16 PO (09:04)
[2025-03-25] MEDS: MAGNESIUM 2GM PREMIX 50ML 50 ML IV SCH (10:32)
[2025-03-25 10:36] VITALS: O2SAT 100
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
--- NOTE | 2025-03-25 14:41 | NUR ---
PT WAS DISCHARGED. EDUCATION WAS GIVEN ON THE IMPORTANCE OF MANAGING PAIN WITH OPIOIDS. AND COMORBIDITIES MANAGEMENT. PT VERBALIZED UNDERSANDING. IV WAS REMOVED WITHOUT COMPLICATIONS & NO FURTHER QUESTIONS. PT WAS OFFERED A LYFT BUT PT DID NOT WAIT AND AMBULATED HERSELF TO THE MAIN ENTRANCE. NO S/S OF DISTRESS.
[2025-04-21] MEDS ORDERED: SECUKINUMAB SQ SCH (09:00)
== END 2025-03-25 14:41 | disposition home or self-care (01) | DRG 389 ==
LOC: EDH 01:39 → EDHIP 06:30 → OBSVTOIN 06:30 → 4BH 12:33
PROVIDERS: ADMIT Internal Medicine; ATTEND Internal Medicine
DX: K56.609 Unspecified intestinal obstruction, unspecified as to partial versus complete obstruction (principal); N17.9 Acute kidney failure, unspecified; Z94.4 Liver transplant status; K52.9 Noninfective gastroenteritis and colitis, unspecified; E86.0 Dehydration; I12.9 Hypertensive chronic kidney disease with stage 1 through stage 4 chronic kidney disease, or unspecified chronic kidney disease; G43.909 Migraine, unspecified, not intractable, without status migrainosus; M06.9 Rheumatoid arthritis, unspecified; Z20.822 Contact with and (suspected) exposure to COVID-19; N18.9 Chronic kidney disease, unspecified; Z87.891 Personal history of nicotine dependence; Z90.49 Acquired absence of other specified parts of digestive tract; Z90.710 Acquired absence of both cervix and uterus; Z99.2 Dependence on renal dialysis; Z86.73 Personal history of transient ischemic attack (TIA), and cerebral infarction without residual deficits
CPT/HCPCS: 36415; 71045; 74176; 76705; 80048; 80053; 80076; 81003; 82140; 82550; 82948; 83036; 83540; 83550; 83605; 83690; 83735; 83880; 84145; 84484; 84703; 85025; 85027; 87086; 87426; 87804; 87880; 93005; 96374; 96375; 99285; G0378; J0360; J0696; J1171; J1644; J1885; J2270; J2405; J3475; J3490; J7030; J7517